=== PATIENT | female | born 1985 | race Caucasian/White ===

== ENCOUNTER 2020-07-20 12:08 | Emergency (ER) | payer OTHER, MEDICAID ==
[~2020-07-20] VITALS: Ht 157.5 cm; Wt 59.0 kg
[2020-07-20] MEDS ORDERED: NORCO5 PO (12:13)
[2020-07-20] MEDS ORDERED: TIZANIDINE HCL4 M1 PO (12:14)
[2020-07-20 12:40] LABS: ABSOLUTE LYMPHOCYTES 0.7 thou/uL (0.8-5.3); ABSOLUTE MONOCYTES 0.2 thou/uL (0.0-1.2); ABSOLUTE NEUTROPHILS 4.4 thou/uL (1.6-8.1); BASOPHILS 0.4 %; EOSINOPHILS 0.4 %; HEMATOCRIT 36.9 % (37.0-47.0); HEMOGLOBIN 12.6 gm/dL (12.0-15.0); LYMPHOCYTES 13.4 %; MCH 32.1 pg (26.0-34.0); MCHC 34.2 g/dL (28.0-37.0); MCV 93.9 fL (80.0-100.0); MONOCYTES 2.8 %; MPV 7.2 fl. (7.2-11.1); NUCLEATED RBCS 0 /100WBC; PLATELET COUNT* 178 thou/uL (150-400); RBC 3.93 mil/uL (4.20-5.00); RDW-CV 13.9 % (10.5-14.5); WBC 5.3 thou/uL (4.0-11.0)
[2020-07-20 12:49] LABS: CREATININE 0.9 mg/dL (0.6-1.3); POTASSIUM 3.9 mmol/L (3.5-5.1)
[2020-07-20 12:53] LABS: ALBUMIN 3.7 g/dL (3.4-5.0); TOTAL BILIRUBIN 0.5 mg/dL (<0.1-1.0)
[2020-07-20 13:54] VITALS: BP 146/93
--- NOTE | 2020-07-20 16:47 | EKG ---
[place] [address] ELECTROCARDIOGRAM REPORT Name: CESAR DELCID Room: [facility]#: [id number] Admission: 07/20/20 Attend Phys: Discharge: 07/20/20 Date of : 83 Date of Service: 07/20/20 1212 Report #: [id number] THIS REPORT FOR: //name// [facility] ED Test Date: 2020-07-20 Test Time: 12:12:32 Pat Name: CESAR FARHANA Department: Room: Gender: F Collection Technician: DSL : 1985 Requested By: Bora Pena Order Number: [id number] MD: Octaviano Valenzuela Measurements Intervals [employer] Rate: 94 P: 43 MS: 221 QRS: 56 QRSD: 95 T: 14 QT: 373 QTc: 467 Interpretive Statements Sinus rhythm Prolonged MS interval No previous ECG available for comparison Electronically Signed On 07-20-2020 16:47:16 [employer]INCIPAL MECH[employer]ICAL ENGINEER by Octaviano Valenzuela [email or web address] <ELECTRONICALLY SIGNED> By: Octaviano Valenzuela MD, [facility] 07/20/20 1647 11 11 Octaviano Valenzuela MD, [facility] /EPI
== END 2020-07-20 13:54 | disposition home or self-care (01) ==
LOC: M.ERS 12:08
PROVIDERS: Family Medicine
DX: R55 Syncope and collapse (principal)